=== PATIENT | female | born 1965 | race Caucasian/White ===

== ENCOUNTER 2020-11-15 06:24 | Day surgery (SDC) | payer BC, OTHER ==
[2020-11-09 10:01] LABS: BASOPHILS % (AUTO) 0.7 % (0.0-5.0); EOSINOPHILS % (AUTO) 5.3 % (0.0-8.0); HEMATOCRIT 43.2 % (36-48); LYMPHOCYTES % (AUTO) 23.6 % (21.0-51.0); MEAN CORPUSCULAR HEMOGLOBIN 28.7 pg (27.0-33.0); MEAN CORPUSCULAR HGB CONC 33.1 g/dL (32.0-36.0); MEAN CORPUSCULAR VOLUME 86.7 fL (79-99); MONOCYTES % (AUTO) 6.6 % (3.0-13.0); NEUTROPHILS % (AUTO) 63.4 % (40.0-77.0); PLATELET COUNT (AUTO) 235 K/uL (130-400); RED BLOOD CELL COUNT(AUTO) 4.98 MIL/uL (4.00-5.50); RED CELL DISTRIBUTION WIDTH 13.2 % (11.0-15.5)
[2020-11-09 10:17] LABS: CREATININE 0.8 mg/dL (0.5-1.5); POTASSIUM 4.7 mmol/L (3.5-5.1)
[2020-11-14 13:08] VITALS: BP 112/82
[~2020-11-15] VITALS: Ht 172.7 cm; Wt 134.5 kg
[2020-11-15] VITALS (17 sets, daily range): BP systolic 89–123; BP diastolic 54–75
[~2020-11-15 06:24] MED LIST: CALC-1105 PO; FISH1CAP27 PO; HYDR25TA PO; IBUP-2070 PO; IRBE150T24 PO; METF-444 PO; MULT-1367 PO; PRAV20TA4 PO; SERT-440 PO
[2020-11-15] MEDS ORDERED: LACTATED RINGERS 1000ML 1,000 ML IV ONE (07:02)
[2020-11-15] MEDS: CEFAZOLIN SODIUM 1 GM VIAL IVP SCH ×2 (07:56→10:16)
[2020-11-15] MEDS ORDERED: ROPIVACAINE 0.5% 5MG/ML 30ML IJ ONE (08:47)
[2020-11-15] MEDS ORDERED: FENTANYL CITRATE PF 50 MCG/1 ML 2ML VIAL ONE ×2 (09:51→11:31)
[2020-11-15] MEDS ORDERED: MIDAZOLAM HCL 1 MG/ML 2ML VIAL ONE (09:51)
[2020-11-15] MEDS ORDERED: DEXAMETHASONE SOD PHOSPHATE 10MG/ML 1ML VIAL ONE (09:51)
[2020-11-15] MEDS ORDERED: PROPOFOL 10 MG/ML 20ML VIAL IV ONE (09:51)
[2020-11-15] MEDS ORDERED: LIDOCAINE PF 100MG/5ML (2%) SYRINGE 5ML ONE ×2 (09:51→09:54)
[2020-11-15] MEDS ORDERED: SUCCINYLCHOLINE CHLORIDE 20 MG/ML 10 ML VIAL ONE ×2 (09:51→09:54)
[2020-11-15] MEDS ORDERED: NEOSTIGMINE 5MG/5ML SYR IV ONE (09:51)
[2020-11-15] MEDS ORDERED: ONDANSETRON 4MG INJ ONE (09:51)
[2020-11-15] MEDS ORDERED: GLYCOPYRROLATE 1 MG/5 ML SYRINGE ONE (09:51)
[2020-11-15] MEDS ORDERED: ROCURONIUM 10MG/1ML SYR 10 MG/ML ML ONE ×2 (09:52→10:49)
[2020-11-15] MEDS ORDERED: KETOROLAC 30MG VIAL (30MG/ML) ONE (12:27)
== END 2020-11-15 13:40 | disposition home or self-care (01) ==
LOC: DAH 06:24
PROVIDERS: ATTEND Orthopaedic Surgery
DX: M75.122 Complete rotator cuff tear or rupture of left shoulder, not specified as traumatic (principal); M25.812 Other specified joint disorders, left shoulder; Z20.822 Contact with and (suspected) exposure to COVID-19; G89.18 Other acute postprocedural pain; E66.01 Morbid (severe) obesity due to excess calories; E11.9 Type 2 diabetes mellitus without complications; E78.00 Pure hypercholesterolemia, unspecified; F41.9 Anxiety disorder, unspecified; F32.9 Major depressive disorder, single episode, unspecified; Z82.49 Family history of ischemic heart disease and other diseases of the circulatory system; Z83.3 Family history of diabetes mellitus; Z90.710 Acquired absence of both cervix and uterus; Z98.890 Other specified postprocedural states; Z79.899 Other long term (current) drug therapy
CPT/HCPCS: 29826; 29827; 36415; 64415; 76942; 80048; 82948 ×2; 85025; 87635; A4215; A4221; A4222; A4223; A4452; A4565; A4649 ×4; A4663; A4930; A5120 ×2; A6260; C1713 ×2; C9803; J0330 ×2; J0690; J1100; J1885; J2001 ×2; J2250; J2405; J2704; J2710; J2795; J3010 ×2; J3490; J7120 ×2

== ENCOUNTER → 2021-10-10 | Outpatient (CLI) | payer OTHER | END | disposition home or self-care (01) | LOC: SHCH 14:27 | PROVIDERS: ATTEND Internal Medicine Cardiovascular Disease | DX: I11.9 Hypertensive heart disease without heart failure (principal); E11.9 Type 2 diabetes mellitus without complications; E78.5 Hyperlipidemia, unspecified; E66.9 Obesity, unspecified | CPT/HCPCS: 93306 ==